=== PATIENT | female | born 1960 | race Hispanic/Latino ===

== ENCOUNTER 2018-08-17 20:19 | Emergency (ER) | payer BC ==
[~2018-08-17] VITALS: Ht 162.6 cm; Wt 65.8 kg
[2018-08-17] MEDS ORDERED: IBUPROFEN 600 MG TAB PO STA (20:41)
[2018-08-17] MEDS ORDERED: ACETAMINOPHEN 325 MG TAB PO ONE (20:45)
--- NOTE | 2018-08-17 21:17 | Diagnostic Imaging Report ---
Exam: AP and lateral view of the right wrist Indication: Lateral right wrist pain after falling Comparison: None Findings: Mild cortical irregularity of the right wrist radial styloid and metaphysis. Mild soft tissue swelling of the wrist. No opaque foreign bodies. Impression: Nondisplaced fracture of the distal right radius. Signed by: Dr. Nicki Ibarra M.D. on 08/17/2018 9:11 PM
== END 2018-08-17 21:45 | disposition home or self-care (01) ==
LOC: FSED 20:19
DX: S52.324A Nondisplaced transverse fracture of shaft of right radius, initial encounter for closed fracture (principal); W18.39XA Other fall on same level, initial encounter; Y92.008 Other place in unspecified non-institutional (private) residence as the place of occurrence of the external cause
CPT/HCPCS: 99283